=== PATIENT | male | born 1955 | race Two or more races ===

== ENCOUNTER 2024-12-30 21:07 | Emergency (ER) | payer MEDICARE, BC, SELFPAY ==
--- NOTE | 2024-12-30 21:11 | EKG_ITS ---
[facility] Test Date: 2024-12-30 Pat Name: JAM FLAHERTY Department: Room: - Gender: Male Doula: : 1955 Requested By: ED Temporary Provider Order Number: [id number] Reading MD: ED Temporary Provider Measurements Intervals [place] Rate: 102 P: 26 MA: 131 QRS: 89 QRSD: 126 T: 19 QT: 331 QTc: 432 Interpretive Statements SINUS TACHYCARDIA RIGHT BUNDLE BRANCH BLOCK [120+ ms QRS DURATION, UPRIGHT V1, 40+ ms S IN I/aVL/V4/V5/V6] MODERATE T-WAVE ABNORMALITY, CONSIDER LATERAL ISCHEMIA [-0.1+ mV T-WAVE IN I/aVL/V5/V6] No previous ECG available for comparison /[id number]/S0/[id number].pdf
[2024-12-30 22:24] VITALS: BP 144/93; PULSE 102; RESP 20; TEMP 37.2; O2SAT 95
--- NOTE | 2024-12-30 22:34 | XR_ITS ---
Examination: PA lateral chest 2 views TECHNIQUE: Upright PA and lateral chest 2 views Date and time: December 30, 2024, 10:53 PM Comparison February 13, 2020 INDICATIONS: Onset chest pain today. FINDINGS: No significant cardiac enlargement. No pneumonia or pulmonary edema. Mild osteopenia IMPRESSION: No active disease.
--- NOTE | 2024-12-30 22:39 | PD.EDCHEST ---
ED Chest Pain RME/HPI General Chief Complaint: Chest Pain Stated Complaint: CHEST PAIN, DIZZINESS,FEVER Time Seen by Provider: 12/30/24 22:23 Arrival date/time: 12/30/24 21:07 RME / HPI RME / HPI narrative: The patient is a 69-year-old male with significant past medical history of hypothyroidism presented to ED with chief complaint of chest pain for 3 hours. The patient reported that around 6 PM this afternoon, he started having some chest pain, that was pressure-like, was not radiating to back or his neck or his arms. He reported his pain is worsened by deep inspiration. He admitted mild chills and lightheadedness, but denied any headache, sore throat, SOB, abdominal pain, any changes in bowel or bladder habit, or leg swelling. Related Data Home Medications ?Medication ?Instructions ?Recorded ?Confirmed Levothyroxine * (SYNTHROID *) 150 mcg PO QDAY #0 tabs 02/03/14 Previous Rx's ?Medication ?Instructions ?Recorded diphenhydramine HCl 25 mg capsule 25 mg PO TID PRN allergic reaction 05/10/23 (Benadryl) #30 caps acetaminophen 325 mg tablet 325 mg PO QID PRN pain #20 tabs 12/31/24 azithromycin 250 mg tablet 250 mg PO QDAY #4 tabs 12/31/24 oseltamivir 75 mg capsule 75 mg PO BID 5 days #10 caps 12/31/24 Allergies Allergy/AdvReac Type Severity Reaction Status Date / Time Contrast Media Allergy Unknown Rash Uncoded 12/30/24 21:08 Review of Systems Review of Systems Systems Reviewed: All systems reviewed, normal except as documented Past Medical History Past Medical History ENDOCRINE: Positive Hypothyroidism Social History SMOKING STATUS: Never smoker ED Exam Narrative Physical exam: General: No acute distress, Alert and Oriented x 3 HEENT: Moist mucous membranes, oropharynx clear Neck: Supple, No masses, No JVD CVS: S1S2 Regular rate and rhythm, No murmurs, rubs or gallops Lungs: Clear to auscultation with no accessory use, no wheeze no rhonchi Abd: Soft, NT/ND, +BS, no organomegaly Ext: No edema, warm and well perfused Skin: No rash Psych: Appropriate mood and affect Course Quality Measures none Orders Category Date Time Status Bedside COVID-19 Antigen Test NOW Care 12/31/24 01:10 Active Bedside Influenza A&B Antigen Test NOW Care 12/31/24 01:10 Completed EKG (ED ONLY) *Do not use* NOW Care 12/30/24 21:11 Completed EKG (ED ONLY) *Do not use* NOW Care 12/30/24 22:34 Completed EKG (ED Only) Stat Exams 12/30/24 21:11 Draft EKG (ED Only) Stat Exams 12/30/24 22:34 Stop Req XR chest 2V Stat Exams 12/30/24 22:34 Completed B-Type Natriuretic Peptide Stat Lab 12/30/24 23:04 Completed CBC Stat Lab 12/30/24 23:04 Completed Comprehensive Metabolic Panel Stat Lab 12/30/24 23:04 Completed Drug Screen,Urine Stat Lab 12/30/24 23:22 Completed LDH (Lactate Dehydrogenase) Stat Lab 12/30/24 23:04 Completed Magnesium Stat Lab 12/30/24 23:04 Completed Partial Thromboplastin Time Stat Lab 12/30/24 23:04 Completed Prothrombin Time with INR Stat Lab 12/30/24 23:04 Completed Troponin I Stat Lab 12/30/24 23:04 Completed Urinalysis Stat Lab 12/30/24 23:22 Completed Aspirin Chew Med 12/30/24 22:38 Discontinued 325 mg PO X1 ONE Azithromycin Po [Zithromax PO] Med 12/31/24 00:55 Discontinued 500 mg PO X1 ONE Nitroglycerin Oint 2% [Nitro-paste Oint 2%] Med 12/30/24 22:53 Discontinued 1 inch TOP X1 ONE Oseltamivir [Tamiflu] Med 12/31/24 00:55 Discontinued 75 mg PO X1 ONE Pantoprazole Inj [Protonix Inj] Med 12/30/24 22:36 Discontinued 40 mg IVP X1 ONE Pantoprazole [Protonix] Med 12/31/24 00:36 Discontinued 40 mg PO X1 ONE Vital Signs Vital signs: Vital Signs Temperature 98.9 F 12/30/24 22:24 Pulse Rate 102 H 12/30/24 22:24 Respiratory Rate 20 12/30/24 22:24 Blood Pressure 144/93 H 12/30/24 22:24 Pulse Oximetry (%) 95 12/30/24 22:24 Oxygen Delivery Method Room Air 12/30/24 22:24 Chest Pain MDM Narrative MDM Narrative:: The patient is a 69-year-old male with significant past medical history of hypothyroidism presented to ED with chief complaint of chest pain for 3 hours. The patient reported that around 6 PM this afternoon, he started having some chest pain, that was pressure-like, was not radiating to back or his neck or his arms. He reported his pain is worsened by deep inspiration. He admitted mild chills and lightheadedness, but denied any headache, sore throat, SOB, abdominal pain, any changes in bowel or bladder habit, or leg swelling. Initial vitals were BP 144/93, pulse 102, temperature 98.9, saturating 95% on room air. CBC fairly stable, CMP fairly stable with AST/ALT 45/76, troponin negative, UA negative for UTI, U-Tox negative, EKG revealed Sinus tachycardia, right bundle branch block. Chest x-ray was negative for pneumonia. The patient was given aspirin 325 mg p.o. x 1, nitroglycerin 1 inch topical x 1, pantoprazole 40 Mg p.o. x 1, oseltamivir 75 Mg p.o. x 1 and azithromycin 500 Mg p.o. x 1. The patient was plan to discharge home. Patient data External records reviewed:: [facility] previous records Clinical information provided by:: patient Social determinants that could affect healthcare access:: none Patient has the following chronic illnesses:: See above How is presenting disease/condition affected by chronic disease/condition?: uneffected by Evaluation data The following diagnostics were reviewed and interpreted by me:: lab results, radiology exam(s) and EKG tracing(s) Lab and/or radiology exams considered but not ordered:: None Interpretation Summary: See above Medications / Prescriptions Medications or Prescriptions considered but not ordered:: None Medication administrations:: Medication Administration History Discontinued Medications Aspirin (Aspirin 81 Mg Chew) 325 mg PO X1 ONE Stop: 12/30/24 22:39 Last Admin: 12/30/24 23:46 Dose: 325 mg Documented By: Azithromycin (Azithromycin 250 Mg Tablet) 500 mg PO X1 ONE Stop: 12/31/24 00:56 Last Admin: 12/31/24 01:08 Dose: 500 mg Documented By: CB Nitroglycerin (Nitroglycerin Oint 2% 1 Inch Packet) 1 inch TOP X1 ONE Stop: 12/30/24 22:54 Oseltamivir Phosphate (Oseltamivir 75 Mg Capsule) 75 mg PO X1 ONE Stop: 12/31/24 00:56 Last Admin: 12/31/24 01:08 Dose: 75 mg Documented By: RAFIQ Pantoprazole Sodium (Pantoprazole Inj 40 Mg Vial) 40 mg IVP X1 ONE Stop: 12/30/24 22:37 Last Admin: 12/31/24 00:51 Dose: Not Given Documented By: RAFIQ Non-Admin Reason: Cancelled by Provider Pantoprazole Sodium (Pantoprazole 40 Mg Tablet) 40 mg PO X1 ONE Stop: 12/31/24 00:37 Last Admin: 12/31/24 00:51 Dose: 40 mg Documented By: RAFIQ See above Consultations Consultation(s) initiated? (list below): No Diagnosis Chest Pain Differential Diagnosis: unstable angina pectoris, atypical chest pain and costochondritis Most likely diagnosis given after review of the tests above:: Influenza A and B positive pneumonia Admission Indicated Admission indicated?: not indicated Admission Request Was there a request for admission?: No Disposition Plan Disposition Plan: Discharge Discharge Attestation Discharge Attestation: The patient and all family members were given an opportunity to ask questions and understood the discharge instructions. Discharge instructions specifically effects, indications for sooner follow up or return to the emergency department, and the expected course of current diagnosis. Patient condition: Stable Discharge Plan Plan Patient Disposition: HOME (Self Care) Prescriptions/Referrals Prescriptions/Med Rec: New oseltamivir 75 mg capsule 75 mg PO BID 5 Days Qty: 10 0RF azithromycin 250 mg tablet 250 mg PO QDAY Qty: 4 0RF acetaminophen 325 mg tablet 325 mg PO QID PRN (Reason: pain) Qty: 20 0RF No Action Levothyroxine * (SYNTHROID *) 150 MCG tablet 150 mcg PO QDAY Qty: 0 diphenhydramine HCl [Benadryl] 25 mg capsule 25 mg PO TID PRN (Reason: allergic reaction) Qty: 30 0RF Referrals: Jone Van MD [Primary Care Provider] - In 1 week Problem List Clinical Impression: Influenza A, Influenza B Patient/Caregiver Discharge Instructions Discharge Activity: activity as tolerated Education Materials: ED Influenza (Adult) Additional Instructions: You were treated for influenza A and B You were discharged by Dr. Redmond with the following recommendations: Please follow-up with your PCP within 1 week of discharge You have been started on: - Oseltamivir 75 Mg twice daily for 5 days - Azithromycin 250 Mg daily for 4 days - Tylenol 325 mg every 6 hourly as needed for pain Continue taking all other medicines as prescribed -Recommended to return back to emergency department if your symptoms persists or worsens Print Language: Rwandan Stand Alone Forms: Keren Award Info., Patient Portal Info Letter
[2024-12-30 23:44] LABS: Collection Type, Urine Clean Catch
[2024-12-30] MEDS: ASPIRIN 81 MG CHEW 325 MG PO (23:46)
[2024-12-30 23:50] LABS: Basophils % (Auto) 0 % (0-2.5); Eosinophils % (Auto) 0 % (0-10); Hematocrit 46.7 % (41.0-53.0); Hemoglobin 15.9 g/dL (13.5-16.0); Immature Granulocytes % (Auto) 0 % (0-0); Immature Granulocytes Auto 0.04 Thou/mm3 (0.00-0.00); Lymphocytes # (Auto) 0.5 Thou/mm3 (1.0-4.8); Lymphocytes % (Auto) 5 % (10-50); Mean Corpuscular Hemoglobin 30.3 pg (25.0-35.0); Mean Corpuscular Volume 89 fL (80-100); Monocytes # (Auto) 0.3 Thou/mm3 (0.0-0.8); Monocytes % (Auto) 3 % (0-12); Neutrophils # (Auto) 9.6 Thou/mm3 (1.8-7.7); Neutrophils % (Auto) 92 % (37-80); Nucleated Red Blood Cell % 0 /100 WBC (0); Platelet Count 257 Thou/mm3 (140-440); RDW Standard Deviation 42.8 fL (35.1-43.9); Red Blood Count 5.24 Miln/mm3 (4.50-5.90); White Blood Count 10.5 Thou/mm3 (3.8-10.6)
[2024-12-31 00:04] LABS: Amphetamine/Methamp Scrn,U Negative (Negative); Barbiturate Screen,Urine Negative (Negative); Benzodiazepines Screen,Urine Negative (Negative); Benzoylecgonine Screen, Ur Negative (Negative); Fentanyl Screen,Urine Negative (Negative); Opiate Screen,Urine Negative (Negative); THC Screen,Urine Negative (Negative)
[2024-12-31 00:10] LABS: Alanine Aminotransferase 76 U/L (10-49); Albumin, Serum 4.5 gm/dL (3.4-4.8); Albumin/Globulin Ratio 1.6 (1.2-2.2); Alkaline Phosphatase 64 U/L (46-116); Anion Gap 11 (7-16); Aspartate Amino Transferase 45 U/L (0-34); B-Type Natriuretic Peptide < 20 pg/mL (0-100); BUN/Creatinine Ratio 14 Ratio (12-20); Bilirubin,Total 0.7 mg/dL (0.3-1.2); Blood Urea Nitrogen 15 mg/dL (9-23); Calcium 8.8 mg/dL (8.3-10.6); Calcium (Corrected) 8.8 mg/dL (8.5-10.1); Carbon Dioxide 23.4 mMol/L (20.0-31.0); Chloride 104 mMol/L (98-107); Creatinine (Component) 1.1 mg/dL (0.6-1.3); Globulin 2.8 gm/dL (2.3-3.5); Glucose 117 mg/dL (74-106); LDH (Lactate Dehydrogenase) 243 U/L (120-246); Magnesium 1.7 mg/dL (1.6-2.6); Osmolality,Calculated 277 (275-295); Potassium 4.1 mMol/L (3.4-5.1); Sodium 138 mMol/L (136-145); Total Protein 7.3 gm/dL (5.7-8.2); Troponin I < 0.020 ng/mL (0.0-0.045); eGFR > 60 See Note
[2024-12-31 00:22] LABS: Bilirubin,Urine Negative (Negative); Blood,Urine 1+ (Negative); Clarity,Urine Clear (Clear/Hazy); Color,Urine Yellow (Lt Yel-Yel); Glucose, Urine Negative (Negative); Ketones,Urine Negative (Negative); Leukocyte Esterase,Urine Negative (Negative); Nitrite,Urine Negative (Negative); PH,Urine 5.5 (5.0-7.0); Protein,Urine Trace (Neg - Trace); Specific Gravity,Urine 1.034 (1.001-1.035)
[2024-12-31 00:25] LABS: Mucus,Urine 2+ /lpf; RBC,Urine 4 /hpf (0-3); Squamous Epithelial Cell,Urine 3 /hpf (0-5); WBC,Urine 2 /hpf (0-5)
[2024-12-31 00:34] LABS: Partial Thromboplastin Time 26.5 Seconds (22.0-36.0); Prothrombin Time 11.2 Seconds (9.0-12.2)
[2024-12-31] MEDS: PANTOPRAZOLE 40 MG TABLET PO (00:51)
[2024-12-31] MEDS: AZITHROMYCIN 250 MG TABLET 500 MG PO (01:08)
[2024-12-31] MEDS: OSELTAMIVIR 75 MG CAPSULE PO (01:08)
[2024-12-31 01:34] VITALS: RESP 16
== END 2024-12-31 01:35 | disposition home or self-care (01) ==
PROVIDERS: Emergency Provider Student in an Organized Health Care Education/Training Program; PCP Family Medicine
DX: J10.1 Influenza due to other identified influenza virus with other respiratory manifestations (principal); R00.0 Tachycardia, unspecified; I45.10 Unspecified right bundle-branch block
CPT/HCPCS: 36415; 71046; 80053; 80307; 81001; 83615; 83735; 83880; 84484; 85025; 85610; 85730; 87400; 87811; 93005; 99283; A9270

== ENCOUNTER → 2025-03-07 | Outpatient (CLI) | payer MEDICARE, BC, SELFPAY ==
[2025-03-07 09:23] LABS: Alanine Aminotransferase 87 U/L (10-49); Albumin, Serum 4.1 gm/dL (3.4-4.8); Albumin/Globulin Ratio 1.6 (1.2-2.2); Alkaline Phosphatase 75 U/L (46-116); Anion Gap 12 (7-16); Aspartate Amino Transferase 49 U/L (0-34); BUN/Creatinine Ratio 12 Ratio (12-20); Bilirubin,Total 0.6 mg/dL (0.3-1.2); Blood Urea Nitrogen 12 mg/dL (9-23); Calcium 9.2 mg/dL (8.3-10.6); Calcium (Corrected) 9.2 mg/dL (8.5-10.1); Carbon Dioxide 25.5 mMol/L (20.0-31.0); Cardiac Risk Estimate 4.0 RATIO (4.0-6.7); Chloride 105 mMol/L (98-107); Cholesterol 206 mg/dL (132-200); Creatinine (Component) 1.0 mg/dL (0.6-1.3); Free T4 (Free Thyroxine) 1.27 ng/dL (0.89-1.76); Globulin 2.5 gm/dL (2.3-3.5); Glucose 113 mg/dL (74-106); HDL Cholesterol 52 mg/dL (40-60); LDL Cholesterol,Calculated 132 mg/dL (0-130); Osmolality,Calculated 283 (275-295); Potassium 4.3 mMol/L (3.4-5.1); Prostate Specific Antigen 0.48 ng/mL (0-4.00); Sodium 142 mMol/L (136-145); Thyroid Stimulating Hormone 1.89 uIU/mL (0.55-4.78); Total Protein 6.6 gm/dL (5.7-8.2); Triglycerides 109 mg/dL (30-150); eGFR > 60 See Note
== END | disposition home or self-care (01) ==
PROVIDERS: PCP Family Medicine; Referring Provider Family Medicine; Visit Provider Family Medicine
DX: E78.1 Pure hyperglyceridemia (principal); E03.2 Hypothyroidism due to medicaments and other exogenous substances; Z13.1 Encounter for screening for diabetes mellitus
CPT/HCPCS: 36415; 80053; 80061; 84153; 84439; 84443